=== PATIENT | female | born 1960 | race Caucasian/White ===

== ENCOUNTER → 2021-08-24 | Outpatient (CLI) | payer OTHER ==
--- NOTE | 2021-08-25 15:02 | MM ---
Reason for exam: screening (asymptomatic). Last mammogram was performed 8 years and 8 months ago. History: Benign ultrasound-guided core biopsy of the right breast, August 14, 2003. Benign stereotactic core biopsy of the right breast, August 01, 2003. 2 core biopsies of the right breast. Physical Findings: A clinical breast exam by your physician is recommended on an annual basis and results should be correlated with mammographic findings. MG 3D Screening Mammo W/Cad Bilateral CC and MLO view(s) were taken. Prior study comparison: December 19, 2012, CAD bilateral diagnostic mammogram. June 19, 2007, bilateral screening mammogram w/CAD. The breast tissue is heterogeneously dense. This may lower the sensitivity of mammography. There is chronic nodularity bilaterally. There is no dominant lesion. No significant changes when compared with prior studies. ASSESSMENT: Benign, BI-RAD 2 RECOMMENDATION: Routine screening mammogram of both breasts in 1 year.
== END | disposition home or self-care (01) ==
LOC: RADMAMWWP 08:00
PROVIDERS: ATTEND Family Medicine
DX: Z12.31 Encounter for screening mammogram for malignant neoplasm of breast (principal)
CPT/HCPCS: 77063; 77067

== ENCOUNTER → 2022-09-14 | Outpatient (CLI) | payer OTHER ==
--- NOTE | 2022-09-15 06:34 | MM ---
Reason for Exam: Screening (asymptomatic). Last mammogram was performed 1 year(s) and 1 month(s) ago. Patient History: Menarche at age 14. First Full-Term at age 26. Postmenopausal. Core Biopsy on the Right side. Core Biopsy on the Right side. 08/14/2003, Benign Ultrasound-Guided Core Biopsy on the right side. 08/01/2003, Benign Stereotactic Core Biopsy on the right side. Risk Values: Lupe 5 year model risk: 1.9%. NCI Lifetime model risk: 9.7%. Prior Study Comparison: 06/19/2007 Bilateral Screening Mammogram, [facility]. 12/19/2012 Bilateral Diagnostic Mammogram, [facility]. 08/24/2021 Bilateral Screening Mammogram, [facility]. Tissue Density: There are scattered fibroglandular densities. Findings: Analyzed By CAD. There are are a few circumscribed small round masses throughout the bilateral breasts. There are benign appearing bilateral axillary lymph nodes redemonstrated. There are stable additional circumscribed round small masses bilaterally redemonstrated. There is no suspicious new group of microcalcifications or new suspicious mass in either breast. Overall Assessment: Benign, BI-RAD 2 Management: Screening Mammogram of both breasts in 1 year. . Patient should continue monthly self-breast exams. A clinical breast exam by your physician is recommended on an annual basis. This exam should not preclude additional follow-up of suspicious palpable abnormalities. Note on Lupe scores and lifetime risk: 1. A Lupe score greater than 3% is considered moderate risk. If this is the case, consider specialist referral to assess eligibility for a risk reducing agent. 2. If overall lifetime risk for the development of breast cancer is 20% or higher, the patient may qualify for future screening with alternating mammogram and breast MRI. Electronically signed and approved by: Jj Calderon M.D.
== END | disposition home or self-care (01) ==
LOC: RADMAMWWP 07:12
PROVIDERS: ATTEND Family Medicine
DX: Z12.31 Encounter for screening mammogram for malignant neoplasm of breast (principal); Z78.0 Asymptomatic menopausal state
CPT/HCPCS: 77063; 77067

== ENCOUNTER → 2024-01-17 | Outpatient (CLI) | payer OTHER ==
--- NOTE | 2024-01-21 12:02 | MM ---
Reason for Exam: Screening (asymptomatic). Last mammogram was performed 1 year(s) and 4 month(s) ago. Patient History: Menarche at age 14. First Full-Term at age 26. Postmenopausal. Core Biopsy on the Right side. Core Biopsy on the Right side. 08/14/2003, Benign Ultrasound-Guided Core Biopsy on the right side. 08/01/2003, Benign Stereotactic Core Biopsy on the right side. Risk Values: Lupe 5 year model risk: 2.0%. NCI Lifetime model risk: 9.5%. Prior Study Comparison: 12/19/2012 Bilateral Diagnostic Mammogram, [facility]. 08/24/2021 Bilateral Screening Mammogram, [facility] 09/14/2022 Bilateral MG 3D screening mammo w/cad, [facility]. Tissue Density: There are scattered areas of fibroglandular density. Findings: Analyzed By CAD. Right breast: There is no suspicious group of microcalcifications or new suspicious mass. Left breast: There is no suspicious group of microcalcifications or new suspicious mass. Overall Assessment: Negative, BI-RAD 1 Management: Screening Mammogram of both breasts in [address] [facility] will attempt to contact patient to return for supplemental views and ultrasound if indicated. Patient should continue monthly self-breast exams. A clinical breast exam by your physician is recommended on an annual basis. This exam should not preclude additional follow-up of suspicious palpable abnormalities. Note on Lupe scores and lifetime risk: 1. A Lupe score greater than 3% is considered moderate risk. If this is the case, consider specialist referral to assess eligibility for a risk reducing agent. 2. If overall lifetime risk for the development of breast cancer is 20% or higher, the patient may qualify for future screening with alternating mammogram and breast MRI. Electronically signed and approved by: Lavelle Fan DO
== END | disposition home or self-care (01) ==
LOC: RADMAMWWP 11:18
PROVIDERS: ATTEND Family Medicine
DX: Z12.31 Encounter for screening mammogram for malignant neoplasm of breast
CPT/HCPCS: 77063; 77067

== ENCOUNTER → 2024-11-12 | Outpatient (CLI) | payer OTHER ==
--- NOTE | 2024-11-12 14:29 | XR ---
EXAMINATION TYPE: XR thoracic spine 2V DATE OF EXAM: 11/12/2024 2:12 PM INDICATION: Patient age:Female; 64 years old; Reason for study: M41.9 SCOLIOSIS, UNSPECIFIED; PHH. pain COMPARISON: None TECHNIQUE: Frontal, lateral, and swimmer's projections of the thoracic spine. FINDINGS: No spondylolisthesis. There is mild level convex scoliosis of the upper thoracic spine with apex at T5. No evidence of any acute osseous pathology. No evidence of loss of vertebral body heigh t is seen. Multilevel disc space narrowing with endplate sclerosis. Multilevel anterior osteophytosis of the upper thoracic spine. Calcified mediastinal lymph nodes. IMPRESSION: 1. No acute process. 2. Mild levoconvex scoliosis of the upper thoracic spine. 3. Mild multilevel degenerative disc disease of the thoracic spine. [facility], , 11/12/2024 2:26 PM
== END | disposition home or self-care (01) ==
LOC: RADXRMAIN 13:31
PROVIDERS: ATTEND Family Medicine
DX: M51.34 Other intervertebral disc degeneration, thoracic region (principal); M41.84 Other forms of scoliosis, thoracic region
CPT/HCPCS: 72070